=== PATIENT | male | born 1970 | race Caucasian/White ===

== ENCOUNTER 2018-10-18 19:38 | Emergency (ER) | payer BC ==
[~2018-10-18] VITALS: Ht 208.3 cm; Wt 200.0 kg
[2018-10-18 20:17] LABS: BASOPHILS # (AUTO) 0.1 X10'3 (0-0.2); BASOPHILS % (AUTO) 0.8 % (0-1); EOSINOPHILS % (AUTO) 0.3 % (0-6); HEMATOCRIT 42.3 % (42.0-52.0); HEMOGLOBIN 14.7 g/dl (14.0-17.9); LYMPHOCYTES # (AUTO) 1.4 X10'3 (1.1-4.8); LYMPHOCYTES % (AUTO) 13.2 % (21-51); MEAN CORPUSCULAR HEMOGLOBIN 30.5 PG (27.0-31.0); MEAN CORPUSCULAR HGB CONC 34.6 g/dL (33.0-36.5); MEAN CORPUSCULAR VOLUME 87.9 FL (78-98); MEAN PLATELET VOLUME 9.1 FL (7.4-10.4); MONOCYTES # (AUTO) 1.3 X10'3 (0-0.9); NEUTROPHILS # (AUTO) 7.8 X10'3 (1.8-7.7); NEUTROPHILS % (AUTO) 73.7 % (42-75); PLATELET COUNT 281 X10'3 (140-440); RED BLOOD COUNT 4.82 X10'6 (4.70-6.10); RED CELL DISTRIBUTION WIDTH 13.5 % (11.5-14.5); WHITE BLOOD COUNT 10.6 X10'3 (4.5-11.0)
[2018-10-18 20:27] LABS: ALANINE AMINOTRANSFERASE 46 U/L (12-78); ALBUMIN 3.1 G/DL (3.4-5.0); ALBUMIN/GLOBULIN RATIO 0.8 (1.1-1.5); ALKALINE PHOSPHATASE 83 IU/L (46-116); ANION GAP 7 (8-16); ASPARTATE AMINO TRANSFERASE 27 U/L (10-37); BILIRUBIN,TOTAL 0.6 MG/DL (0.1-1.0); BLOOD UREA NITROGEN 10 MG/DL (7-18); BUN/CREATININE RATIO 7.2 (5.4-32.0); CALCIUM 8.6 MG/DL (8.5-10.1); CHLORIDE 104 MMOL/L (99-107); CREATININE 1.39 MG/DL (0.60-1.10); GLUCOSE 92 MG/DL (70-104); POTASSIUM 3.4 MMOL/L (3.5-5.1); SODIUM 138 MMOL/L (135-145); TOTAL CARBON DIOXIDE 26.6 MMOL/L (24-32); TOTAL PROTEIN 6.9 G/DL (6.4-8.2); eGFR 54 ML/MIN
[2018-10-18] MEDS ORDERED: normal saline 1000ML IV soln IVB ONE (20:45)
[2018-10-18] MEDS ORDERED: CIPR-230 PO (20:49)
[2018-10-18] MEDS ORDERED: METR-159 PO (20:49)
[2018-10-18] MEDS ORDERED: metroNIDAZOLE 500mg tablet PO ONE (20:50)
[2018-10-18] MEDS ORDERED: ciprofloxacin 250mg tablet PO ONE (20:50)
--- NOTE | 2018-10-18 20:57 | NUR ---
PT REPORTS 7 DAYS OF DIARRHEA AND ABD PAIN THAT HAS NOT IMPROVED. EPISODES ARE INTERMITTENT. IMMODIUM TAKEN AND PROVIDING MINIMAL RELIEF. REPORTS AT LEAST 30 EPISODES OF DIARRHEA TODAY. STOOL IS "INCREDIBLY WATERY" STOOL SAMPLE COLLECTED.
--- NOTE | 2018-10-18 21:13 | NUR ---
DR PRUITT TALKING WITH PT ABOUT DC INSTRUCTIONS. PT STILL RECEIVING HIS BOLUS OF 2 LITERS NS. PT UPDATED THAT STOOL SAMPLE RESULTS FOR O&P WILL TAKE 7-10 DAYS.
--- NOTE | 2018-10-18 21:47 | NUR ---
DISCUSSED JPT'S C/O SPASMS AND PAIN WITH DR PRUITT. NEW ORDER FOR BENTYL AND TORADOL RECEIVED.
[2018-10-18] MEDS ORDERED: ketorolac trometh. 30mg/ml inj. IV ONE (21:50)
[2018-10-18] MEDS ORDERED: dicyclomine 10 MG capsule PO ONE (21:50)
[2018-10-18 22:39] VITALS: BP 127/73
[2018-10-18 23:14] LABS: CLARITY,URINE CLEAR (Clear); COLOR,URINE YELLOW (Yellow); GLUCOSE, URINE NEGATIVE (Neg); KETONES,URINE NEGATIVE (Neg); LEUKOCYTE ESTERASE ,URINE NEGATIVE (Neg); NITRITES, URINE NEGATIVE (Neg); OCCULT BLOOD,URINE TRACE-LYSED (Neg); PROTEIN,URINE NEGATIVE (Neg); UROBILINOGEN,URINE 0.2 E.U/dL (0.2-1.0)
[2018-10-18 23:18] LABS: UA COLLECTION TYPE CLN CATCH MIDSTREAM
[2018-10-18 23:19] LABS: BACTERIA,URINE FEW /HPF (Neg); MUCUS STRANDS MODERATE /LPF (Neg); RBC,URINE 0-2 /HPF (0-2); SQUAMOUS EPITHELIAL CELL,UR MODERATE /LPF (FEW); WBC,URINE 0-4 /HPF (0-4)
== END 2018-10-18 22:47 | disposition home or self-care (01) ==
LOC: ER 19:39
DX: R19.7 Diarrhea, unspecified (principal); Z88.1 Allergy status to other antibiotic agents; Z79.899 Other long term (current) drug therapy
CPT/HCPCS: 36415; 80053; 81001; 85025; 96361; 96374; 99284; J1885; J7030; J3490